=== PATIENT | male | born 1965 | race Caucasian/White ===

== ENCOUNTER 2019-10-16 21:47 | Emergency (ER) | payer SELFPAY ==
--- NOTE | 2019-10-16 22:18 | ER ---
Nurse's Notes [facility] Name: Lyle Silva Age: 54 yrs Sex: Male : 1965 Arrival Date: 10/16/2019 Time: 21:51 Bed 2 Private MD: Diagnosis: Cellulitis of left upper limb;Insect bite (nonvenomous) of left forearm Presentation: 10/15 21:55 Chief complaint: Patient states: Spider bite on L forearm 30 hours ago. Swelling on L ca1 forearm. Coronavirus screen: Client denies travel out of the [place] in the last 14 days. At this time, the client does not indicate any symptoms associated with coronavirus-19. Ebola Screen: Patient negative for fever greater than or equal to 101.5 degrees Fahrenheit, and additional compatible Ebola Virus Disease symptoms Patient denies exposure to infectious person. Patient denies travel to an Ebola-affected area in the 21 days before illness onset. No symptoms or risks identified at this time. Initial Sepsis Screen: Does the patient meet any 2 criteria? No. Patient's initial sepsis screen is negative. Does the patient have a suspected source of infection? No. Patient's initial sepsis screen is negative. Risk Assessment: Do you want to hurt yourself or someone else? Patient reports no desire to harm self or others. Onset of symptoms was October 16, 2019. 21:55 Method Of Arrival: Ambulatory ca1 21:55 Acuity: LUIZA 4 ca1 Triage Assessment: 22:28 Bite description: bite sustained to left arm by a spider, animal information: mg2 vaccination(s) is unknown. General: Appears in no apparent distress. comfortable. Historical: - Allergies: 21:57 No Known Allergies; ca1 - Home Meds: 21:57 None [Active]; ca1 - PMHx: 21:57 None; ca1 - Immunization history:: Adult Immunizations up to date. - Social history:: Smoking status: Patient reports the use of cigarette tobacco products, denies chronic smoking, but will smoke occasionally. - Family history:: not pertinent. - Hospitalizations: : No recent hospitalization is reported. Screenin:28 Abuse screen: Denies threats or abuse. Denies injuries from another. Nutritional mg2 screening: No deficits noted. Tuberculosis screening: No symptoms or risk factors identified. Fall Risk None identified. Assessment: 22:27 General: Appears in no apparent distress. comfortable, Behavior is calm, cooperative. mg2 Pain: Complains of pain in left arm. Neuro: Level of Consciousness is awake, alert, obeys commands, Oriented to person, place, time, situation. Cardiovascular: Capillary refill < 3 seconds Patient's skin is warm and dry. Respiratory: Airway is patent Respiratory effort is even, unlabored, Respiratory pattern is regular, symmetrical. GI: No signs and/or symptoms were reported involving the gastrointestinal system. : No signs and/or symptoms were reported regarding the genitourinary system. EENT: No signs and/or symptoms were reported regarding the EENT system. Derm: Skin redness in the left forearm Skin is pink, warm \T\ dry. Musculoskeletal: Circulation, motion, and sensation intact. Capillary refill < 3 seconds. Vital Signs: 21:55 BP 135 / 95; Pulse 81; Resp 15 S; Temp 98.9(O); Pulse Ox 100% on R/A; Weight 90.72 kg ca1 (R); Height 6 ft. 1 in. (185.42 cm) (R); 21:55 Body Mass Index 26.39 (90.72 kg, 185.42 cm) ca1 ED Course: 21:51 Patient arrived in ED. cf2 21:56 Triage completed. ca1 21:57 Arm band placed on right wrist. ca1 22:03 Roddy Mojica MD is Attending Physician. rn 22:10 Jah Zamora, ZACARIAS is Primary Nurse. mg2 22:28 Patient has correct armband on for positive identification. Door closed. mg2 22:28 No provider procedures requiring assistance completed. Patient did not have IV access mg2 during this emergency room visit. Administered Medications: 22:26 Drug: Bactrim (160 mg-800 mg (DS) 1 tablet Route: PO; mg2 22:26 Follow up: Response: No adverse reaction; Medication administered at discharge. mg2 Outcome: 22:18 Discharge ordered by . rn 22:28 Discharged to home ambulatory. mg2 22:28 Condition: stable 22:28 Discharge instructions given to patient, Instructed on discharge instructions, follow up and referral plans. medication usage, Demonstrated understanding of instructions, follow-up care, medications, Prescriptions given X 1. 22:28 Patient left the ED. mg2 Signatures: Roddy Mojica MD MD rn Gardose, Michele, RN RN mg2 Payton Mensah RN RN ca1 Liam Joseph cf2
--- NOTE | 2019-10-16 22:19 | EDPHYS ---
Physician Documentation [facility] Name: Lyle Silva Age: 54 yrs Sex: Male : 1965 Arrival Date: 10/16/2019 Time: 21:51 Bed 2 Private MD: ED Physician Roddy Mojica HPI: 10/15 22:13 This 54 yrs old Male presents to ER via Ambulatory with complaints of Insect rn Bite. 22:13 The patient was bitten on the left arm, by insect. Onset: The symptoms/episode rn began/occurred 2 day(s) ago. Severity of symptoms: At their worst the symptoms were mild, in the emergency department the symptoms are unchanged. The patient has not experienced similar symptoms in the past. Reports left arm swelling after insect bite 2 days ago, no fever, does not know what bit him. Mild pain, no abscess. Reports bitten by brown recluse in past and had blood clot so came to get it checked, only mild tenderness at site of bite, no distal swelling or color change.. Historical: - Allergies: 21:57 No Known Allergies; ca1 - Home Meds: 21:57 None [Active]; ca1 - PMHx: 21:57 None; ca1 - Immunization history:: Adult Immunizations up to date. - Social history:: Smoking status: Patient reports the use of cigarette tobacco products, denies chronic smoking, but will smoke occasionally. - Family history:: not pertinent. - Hospitalizations: : No recent hospitalization is reported. ROS: 22:15 Constitutional: Negative for fever, chills, and weight loss, MS/Extremity: + left arm rn bite with mils swelling Neuro: Negative for headache, weakness, numbness, tingling, and seizure. Exam: 22:15 Constitutional: This is a well developed, well nourished patient who is awake, alert, rn and in no acute distress. MS/ Extremity: Pulses equal, no cyanosis. Neurovascular intact. + mild left dorsal forearm swelling, + mild erythema, central subcentimeter wound without fluctuance. No streaking. No necrosis. No crepitus. No tenderness along venous system. Vital Signs: 21:55 BP 135 / 95; Pulse 81; Resp 15 S; Temp 98.9(O); Pulse Ox 100% on R/A; Weight 90.72 kg ca1 (R); Height 6 ft. 1 in. (185.42 cm) (R); 21:55 Body Mass Index 26.39 (90.72 kg, 185.42 cm) ca1 MDM: 22:03 Patient medically screened. rn 22:15 Differential diagnosis: cellulitis, insect bite. Data reviewed: vital signs, nurses rn notes, and as a result, I will discharge patient. Counseling: I had a detailed discussion with the patient and/or guardian regarding: the historical points, exam findings, and any diagnostic results supporting the discharge/admit diagnosis, the need for outpatient follow up, to return to the emergency department if symptoms worsen or persist or if there are any questions or concerns that arise at home. Special discussion: I discussed with the patient/guardian in detail that at this point there is no indication for admission to the hospital. It is understood, however, that if the symptoms persist or worsen the patient needs to return immediately for re-evaluation. ED course: + insect bite, no fluctuance or abscess, + possible cellulitis or localized allergic reaction, will dc home with abx and return precautions, recommend heat to area as well as prn benadryl.. Administered Medications: 22:26 Drug: Bactrim (160 mg-800 mg (DS) 1 tablet Route: PO; mg2 22:26 Follow up: Response: No adverse reaction; Medication administered at discharge. mg2 Disposition: 10/16/19 22:18 Discharged to Home. Impression: Cellulitis of left upper limb, Insect bite (nonvenomous) of left forearm. - Condition is Stable. - Discharge Instructions: Insect Bite, Cellulitis, Adult. - Prescriptions for Bactrim DS 800- 160 mg Oral Tablet - take 1 tablet by ORAL route every 12 hours for 10 days; 20 tablet. - Medication Reconciliation Form, Thank You Letter, Antibiotic Education, Prescription Opioid Use form. - Follow up: Private Physician; When: As needed; Reason: Recheck today's complaints, Re-evaluation by your physician. - Problem is new. - Symptoms are unchanged. Signatures: Roddy Mojica MD MD rn Gardose, Michele, RN RN mg2 Payton Mensah RN RN ca1 Corrections: (The following items were deleted from the chart) 22:16 22:15 Constitutional: This is a well developed, well nourished patient who is awake, rn alert, and in no acute distress. MS/ Extremity: Pulses equal, no cyanosis. Neurovascular intact. + mild left dorsal forearm swelling, + mild erythema, central subcentimeter wound without fluctuance. No streaking. No necrosis. No crepitus. rn 22:28 22:18 10/16/2019 22:18 Discharged to Home. Impression: Cellulitis of left upper limb; mg2 Insect bite (nonvenomous) of left forearm. Condition is Stable. Forms are Medication Reconciliation Form, Thank You Letter, Antibiotic Education, Prescription Opioid Use. Follow up: Private Physician; When: As needed; Reason: Recheck today's complaints, Re-evaluation by your physician. Problem is new. Symptoms are unchanged. rn 22:28 22:28 10/16/2019 22:18 Discharged to Home. Impression: Cellulitis of left upper limb; mg2 Insect bite (nonvenomous) of left forearm. Condition is Stable. Discharge Instructions: Cellulitis, Adult, Insect Bite. Prescriptions for Bactrim DS 800-160 mg Oral Tablet - take 1 tablet by ORAL route every 12 hours for 10 days; 20 tablet. and Forms are Medication Reconciliation Form, Thank You Letter, Antibiotic Education, Prescription Opioid Use. Follow up: Private Physician; When: As needed; Reason: Recheck today's complaints, Re-evaluation by your physician. Problem is new. Symptoms are unchanged. mg2
[2019-10-16] MEDS ORDERED: SMZ./TMP. 800/160 MG TABLET ONE (22:34)
[2019-10-16 22:49] VITALS: BP 135/95; TEMP 98.9; O2SAT 100
== END 2019-10-16 22:28 | disposition home or self-care (01) ==
LOC: ER 21:47
DX: L03.114 Cellulitis of left upper limb (principal); F17.210 Nicotine dependence, cigarettes, uncomplicated
CPT/HCPCS: 99283

== ENCOUNTER 2019-11-14 12:22 | Emergency (ER) | payer SELFPAY ==
--- NOTE | 2019-11-14 13:35 | RAD REPORT ---
EXAM DESCRIPTION: CT - Soft Tissue Neck W/Contr CLINICAL HISTORY: difficulty swallowing Neck pain, dysphagia COMPARISON: No comparisons TECHNIQUE All CT scans are performed using dose optimization technique as appropriate and may includ e automated exposure control or mA/KV adjustment according to patient size. FINDINGS: Nasopharyngeal tissues are normal in appearance. Fossa Rosenmller are normal. Parapharyngeal fat triangles are symmetric. Tongue base structures are normal. Epiglottis and aryepiglottic folds are normal. Piriform sinuses are well aerated. The vocal cords are normal in appearance. Salivary glands are normal in appearance. A few mildly prominent lymph nodes are seen along both jugular chains, largest on the left measuring 10 mm. These do not have a pathologic appearance by CT. Mild lower cervical degenerative changes are present. Slight emphysematous changes seen in the lung apices. IMPRESSION: No acute or aggressive abnormality discerned. No CT finding to explain clinical history of dysphagia.
--- NOTE | 2019-11-14 13:40 | ER ---
Nurse's Notes [facility] Name: Lyle Silva Age: 54 yrs Sex: Male : 1965 Arrival Date: 11/14/2019 Time: 12:24 Bed 15 Private MD: Diagnosis: Dysphagia Presentation: 11/13 12:38 Chief complaint: Patient states: Difficulty swallowing x 2 months, states, "last night ca1 almost choke while eating a taco. It feels like it's a the bottom of my throat". Coronavirus screen: Client denies travel out of the [place] in the last 14 days. At this time, the client does not indicate any symptoms associated with coronavirus-19. Ebola Screen: Patient negative for fever greater than or equal to 101.5 degrees Fahrenheit, and additional compatible Ebola Virus Disease symptoms Patient denies exposure to infectious person. Patient denies travel to an Ebola-affected area in the 21 days before illness onset. No symptoms or risks identified at this time. Initial Sepsis Screen: Does the patient meet any 2 criteria? No. Patient's initial sepsis screen is negative. Does the patient have a suspected source of infection? No. Patient's initial sepsis screen is negative. Risk Assessment: Do you want to hurt yourself or someone else? Patient reports no desire to harm self or others. Onset of symptoms was November 14, 2019. 12:38 Method Of Arrival: Ambulatory ca1 12:38 Acuity: LUIZA 4 ca1 Triage Assessment: 12:40 EENT: Throat is clear. Respiratory: Airway is patent Respiratory effort is even, ca1 unlabored, Respiratory pattern is regular, symmetrical. Historical: - Allergies: 12:40 No Known Allergies; ca1 - Home Meds: 12:40 None [Active]; ca1 - PMHx: 12:40 None; ca1 - Immunization history:: Adult Immunizations not up to date. - Social history:: Smoking status: unknown. Screenin:48 Abuse screen: Denies threats or abuse. Denies injuries from another. Nutritional jr10 screening: No deficits noted. Tuberculosis screening: No symptoms or risk factors identified. Fall Risk IV access (20 points). Assessment: 13:35 General: Appears in no apparent distress. Behavior is calm, cooperative, appropriate jr10 for age. Pain: Complains of pain in throat. Neuro: No deficits noted. Cardiovascular: No deficits noted. Denies chest pain. Respiratory: No deficits noted. Airway is patent Respiratory effort is even, unlabored, Respiratory pattern is regular, symmetrical, Denies cough, shortness of breath. GI: No deficits noted. No signs and/or symptoms were reported involving the gastrointestinal system. : No deficits noted. No signs and/or symptoms were reported regarding the genitourinary system. EENT: Oral mucosa is moist. Poor dentition noted. Throat is clear is pink with gag reflex present, Reports difficulty swallowing since x2 months. Vital Signs: 12:38 BP 140 / 93; Pulse 71; Resp 17 S; Temp 98.5(TE); Pulse Ox 98% on R/A; Weight 90.72 kg ca1 (R); Height 6 ft. 1 in. (185.42 cm) (R); Pain 0/10; 13:51 BP 125 / 82; Pulse 56; Resp 20; Pulse Ox 99% on R/A; jr10 12:38 Body Mass Index 26.39 (90.72 kg, 185.42 cm) ca1 ED Course: 12:24 Patient arrived in ED. ag5 12:32 Bala Rodriguez PA is PHCP. jmm 12:32 Roddy Mojica MD is Attending Physician. jmm 12:35 Sunni Yeung, ZACARIAS is Primary Nurse. jr10 12:40 Triage completed. ca1 12:40 Arm band placed on right wrist. ca1 12:48 Patient has correct armband on for positive identification. Bed in low position. Call jr10 light in reach. Side rails up X 1. Pulse ox on. NIBP on. 12:48 No provider procedures requiring assistance completed. Inserted saline lock: 20 gauge jr10 in right antecubital area, using aseptic technique. IV is patent, is intact, with good blood return, Flushed. 13:14 CT Soft Tissue Neck W/contr In Process Unspecified. EDMS 13:38 Marisol García MD is Referral Physician. [facility] 13:52 IV discontinued, intact, bleeding controlled, No redness/swelling at site. Pressure jr10 dressing applied. Administered Medications: No medications were administered Outcome: 13:39 Discharge ordered by MD. [facility] 13:52 Discharged to home ambulatory. jr10 13:52 Condition: stable 13:52 Discharge instructions given to patient, Instructed on discharge instructions, follow up and referral plans. Demonstrated understanding of instructions, follow-up care, medications, Prescriptions given X 1. 13:53 Patient left the ED. jr10 Signatures: Dispatcher [employer] EDMS Bala Rodriguez PA PA jmm Acob, Cheryl, RN RN ca1 Alia Albert5 Sunni Yeung RN RN jr10
--- NOTE | 2019-11-14 13:40 | EDPHYS ---
Physician Documentation [facility] Name: Lyle Silva Age: 54 yrs Sex: Male : 1965 Arrival Date: 11/14/2019 Time: 12:24 Bed 15 Private MD: ED Physician Roddy Mojica HPI: 11/13 12:44 This 54 yrs old Male presents to ER via Ambulatory with complaints of jmm Difficulty Swallowing. 12:44 The patient presents with dysphagia, of both solids and liquids. Onset: The jmm symptoms/episode began/occurred gradually, 2 month(s) ago. Modifying factors: The symptoms are alleviated by nothing, the symptoms are aggravated by nothing. Associated signs and symptoms: Pertinent negatives chest pain, shortness of breath. This is a 54 year old male with no chronic medical conditions that presents to the ED with complaints of difficulty swallowing which has been ongoing for the past 2 months. Patient states last night having difficulty with food last night. Denies chest pain, shortness of breath, vomiting. . Historical: - Allergies: 12:40 No Known Allergies; ca1 - Home Meds: 12:40 None [Active]; ca1 - PMHx: 12:40 None; ca1 - Immunization history:: Adult Immunizations not up to date. - Social history:: Smoking status: unknown. ROS: 12:44 Constitutional: Negative for fever, chills, and weight loss, Cardiovascular: Negative jmm for chest pain, palpitations, and edema, Respiratory: Negative for shortness of breath, cough, wheezing, and pleuritic chest pain, Abdomen/GI: Negative for abdominal pain, nausea, vomiting, diarrhea, and constipation. 12:44 All other systems are negative. Exam: 12:44 Constitutional: This is a well developed, well nourished patient who is awake, alert, jmm and in no acute distress. Head/Face: atraumatic. Eyes: EOMI, no conjunctival erythema appreciated ENT: Moist Mucus Membranes Neck: Trachea midline, Supple Chest/axilla: Normal chest wall appearance and motion. Cardiovascular: Regular rate and rhythm. No edema appreciated Respiratory: Normal respirations, no respiratory distress appreciated Abdomen/GI: Non distended, soft Back: Normal ROM Skin: General appearance color normal MS/ Extremity: Moves all extremities, no obvious deformities appreciated, no edema noted to the lower extremities Neuro: Awake and alert, normal gait Psych: Behavior is normal, Mood is normal, Patient is cooperative and pleasant Vital Signs: 12:38 BP 140 / 93; Pulse 71; Resp 17 S; Temp 98.5(TE); Pulse Ox 98% on R/A; Weight 90.72 kg ca1 (R); Height 6 ft. 1 in. (185.42 cm) (R); Pain 0/10; 13:51 BP 125 / 82; Pulse 56; Resp 20; Pulse Ox 99% on R/A; jr10 12:38 Body Mass Index 26.39 (90.72 kg, 185.42 cm) ca1 MDM: 12:35 Patient medically screened. [facility] 13:38 Data reviewed: vital signs, nurses notes. Counseling: I had a detailed discussion with scarlet the patient and/or guardian regarding: the historical points, exam findings, and any diagnostic results supporting the discharge/admit diagnosis, radiology results, the need for outpatient follow up, to return to the emergency department if symptoms worsen or persist or if there are any questions or concerns that arise at home. ED course: Imaging studies negative. patient advised to follow up with pcp and otherwise given strict return precautions. patient understood and agrees with the plan of care. . 11/13 12:42 Order name: CT Soft Tissue Neck W/contr; Complete Time: 13:37 [facility] 11/13 12:42 Order name: Saline Lock; Complete Time: 12:48 [facility] Administered Medications: No medications were administered Disposition: 18:40 Co-signature as Attending Physician, Roddy Mojica MD. rn Disposition: 11/14/19 13:39 Discharged to Home. Impression: Dysphagia. - Condition is Stable. - Discharge Instructions: Dysphagia. - Prescriptions for Prilosec 40 mg Oral capsule,delayed release(DR/EC) - take 1 capsule by ORAL route once daily before a meal; 30 capsule. - Medication Reconciliation Form, Thank You Letter, Antibiotic Education, Prescription Opioid Use form. - Follow up: Marisol García MD; When: 2 - 3 days; Reason: Recheck today's complaints, Continuance of care, Re-evaluation by your physician. Signatures: Dispatcher [employer] EDMS Bala Rodriguez PA PA Roddy Dominguez MD MD rn Payton Mensah RN RN ca1 Sunni Yeung RN RN jr10 Corrections: (The following items were deleted from the chart) 13:53 13:39 11/14/2019 13:39 Discharged to Home. Impression: Dysphagia. Condition is Stable. jr10 Forms are Medication Reconciliation Form, Thank You Letter, Antibiotic Education, Prescription Opioid Use. Follow up: Marisol García; When: 2 - 3 days; Reason: Recheck today's complaints, Continuance of care, Re-evaluation by your physician. scarlet
[2019-11-16 19:08] VITALS: TEMP 98.5
[2019-11-16 19:09] VITALS: BP 125/82; O2SAT 99
== END 2019-11-14 13:53 | disposition home or self-care (01) ==
LOC: ER 12:22
DX: R13.10 Dysphagia, unspecified (principal)
CPT/HCPCS: 70491; 99284; Q9967